=== PATIENT | male | born 1980 | race Caucasian/White ===

== ENCOUNTER 2018-10-26 18:23 | Emergency (ER) | payer OTHER ==
[2018-10-26 18:28] VITALS: PULSE 72; RESP 18
[2018-10-26] MEDS ORDERED: Sodium Chloride 0.9% 1,000 ML IV STA (18:52)
[2018-10-26 19:24] LABS: BASO # 0.1 K/uL (0.0-0.2); BASO % 0.4 % (0.0-2.0); EOS % 0.1 % (0.0-4.0); HEMOGLOBIN 13.9 g/dL (12.0-18.0); LYMPH # 1.4 K/uL (1.0-4.3); LYMPH % 8.5 % (20.0-40.0); MEAN CELL VOLUME 86.7 fl (80.0-94.0); MEAN CORPUSCULAR HEMOGLOBIN 29.6 pg (27.0-31.0); MEAN CORPUSCULAR HGB CONC 34.1 g/dL (33.0-37.0); MEAN PLATELET VOLUME 9.1 fl (7.2-11.7); MONO # 0.9 K/uL (0.0-0.8); MONO % 5.3 % (0.0-10.0); NEUT # 13.7 K/uL (1.8-7.0); NEUT % 85.7 % (50.0-75.0); PLATELET COUNT 219 K/uL (130-400); RBC 4.71 Mil/uL (4.40-5.90); RED CELL DISTRIBUTION WIDTH 13.7 % (11.5-14.5)
[2018-10-26 19:36] LABS: SQUAMOUS EPITHIAL < 1 /hpf (0-5); URINE BACTERIA RARE (<OCC); URINE BILIRUBIN NEGATIVE (NEGATIVE); URINE BLOOD MODERATE (NEGATIVE); URINE CALCIUM OXALATE CRYSTALS FEW /hpf (<OCC); URINE CLARITY CLOUDY (Clear); URINE COLOR YELLOW (YELLOW); URINE GLUCOSE (UA) NEG (NEGATIVE); URINE HYALINE CAST 0-2 /hpf (0-2); URINE LEUKOCYTE ESTERASE NEG Leu/uL (Negative); URINE PROTEIN 100 mg/dL (NEGATIVE)
--- NOTE | 2018-10-26 19:46 | ED PDOC ---
HPI: Abdomen Time Seen by Provider: 10/26/18 18:33 Chief Complaint (Nursing): Male Genitourinary Chief Complaint (Provider): Left flank pain History Per: Patient History/Exam Limitations: no limitations Onset/Duration Of Symptoms: Days (x2) Current Symptoms Are (Timing): Still Present Additional Complaint(s): 38 year old male presents to the ED with sudden onset of sharp nonradiating left flank pain 2 hours [employer]. Denies nausea or vomiting. Patient hasn't taken anyt hank for pain. Patient had gone to the [facility] where they told him there was blood in the urine. Patient also denies testicular pain. PMD: none provided Past Medical History Reviewed: Historical Data, Nursing Documentation, Vital Signs Vital Signs: Last Vital Signs Temp 97.1 F L 10/26/18 18:26 Pulse 72 10/26/18 18:26 Resp 18 10/26/18 18:26 BP 162/90 H 10/26/18 18:26 Pulse Ox 99 10/26/18 18:26 - Medical History PMH: Asthma Other PMH: ADHD - Surgical History Surgical History: No Surg Hx - Family History Family History: States: Other Other Family History: Kideny stones - Social History Current smoker - smoking cessation education provided: No - Home Medications Home Medications: Ambulatory Orders Medication Instructions Recorded Ciprofloxacin [Cipro] 1 tab PO BID #14 tab 10/26/18 RX: Ibuprofen [Motrin Tab] 600 mg PO Q8 PRN #30 tab 10/26/18 RX: traMADol [Ultram] 50 mg PO TID PRN #15 tab 10/26/18 Tamsulosin [Flomax] 0.4 mg PO DAILY #14 cap 10/26/18 - Allergies Allergies/Adverse Reactions: Allergies Allergy/AdvReac Type Severity Reaction Status Date / Time No Known Allergies Allergy Verified 10/26/18 18:26 Review of Systems ROS Statement: Except As Marked, All Systems Reviewed And Found Negative Gastrointestinal: Positive for: Abdominal Pain (Left flank pain). Negative for: Nausea, Vomiting Genitourinary Male: Negative for: Hematuria, Other (testicular pain) Physical Exam - Reviewed Nursing Documentation Reviewed: Yes Vital Signs Reviewed: Yes - Physical Exam Appears: Positive for: Non-toxic, In Acute Distress (painful distress) Head Exam: Positive for: ATRAUMATIC, NORMOCEPHALIC Skin: Positive for: Warm, Dry Eye Exam: Positive for: EOMI, PERRL Neck: Positive for: Painless ROM, Supple Cardiovascular/Chest: Positive for: Regular Rate, Rhythm. Negative for: Murmur Respiratory: Positive for: Normal Breath Sounds. Negative for: Respiratory Distress Gastrointestinal/Abdominal: Positive for: Soft. Negative for: Tenderness, Mass, Guarding, Rebound Back: Positive for: L CVA Tenderness (mild) Extremity: Positive for: Normal ROM. Negative for: Deformity Lymphatic: Negative for: Adenopathy Neurologic/Psych: Positive for: Alert. Negative for: Motor/Sensory Deficits - Laboratory Results Result Diagrams: 10/26/18 19:16 10/26/18 21:30 Lab Results: Urine Color Yellow (YELLOW) 10/26/18 19:16 Urine Clarity Cloudy (Clear) 10/26/18 19:16 Urine pH 5.0 (5.0-8.0) 10/26/18 19:16 Ur Specific Norden 1.033 (1.003-1.030) H 10/26/18 19:16 Urine Protein 100 mg/dL (NEGATIVE) 10/26/18 19:16 Urine Glucose (UA) Neg mg/dL (NEGATIVE) 10/26/18 19:16 Urine Ketones 80 mg/dL (NEGATIVE) 10/26/18 19:16 Urine Blood Moderate (NEGATIVE) 10/26/18 19:16 Urine Nitrate Negative (NEGATIVE) 10/26/18 19:16 Urine Bilirubin Negative (NEGATIVE) 10/26/18 19:16 Urine Urobilinogen 1.0 mg/dL (0.2-1.0) 10/26/18 19:16 Ur Leukocyte Esterase Neg Arianne/uL (Negative) 10/26/18 19:16 Urine RBC (Auto) 12 /hpf (0-3) H 10/26/18 19:16 Urine Microscopic WBC 2 /hpf (0-5) 10/26/18 19:16 Ur Squamous Epith Cells < 1 /hpf (0-5) 10/26/18 19:16 Calcium Oxalate Crystal Few /hpf (<OCC) H 10/26/18 19:16 Urine Bacteria Rare (<OCC) 10/26/18 19:16 Hyaline Casts 0-2 /hpf (0-2) 10/26/18 19:16 - ECG O2 Sat by Pulse Oximetry: 99 (RA) Pulse Ox Interpretation: Normal Medical Decision Making Medical Decision Making: Initial Impression: Left flank pain Differential includes but not limited to pyelonephritis, renal colic, and muscle strain Initial Plan: --CT abd/pelvis --CMP --Urine drug screen --CBC --Fomax 0.4mg PO --Sodium chloride 1000mL IV --Toradol 30mg IV --Tylenol 975mg PO --Urine culture --Urinalysis UA demonstrates blood Bloodwork demonstrates leukocytosis Name: ALEJANDRO LIPSCOMB Exam Date: Oct 26, 2018 7:43:21 PM EST Modality Type: CT Description: CT - ABDOMEN AND PELVIS STONE PROTOCOL Gender: M Laterality: Not applicable : 84 Referring Physician: Agnieszka Coronado EXAM: CT Abdomen and Pelvis without IV contrast CLINICAL HISTORY: Left flank pain TECHNIQUE: Axial computed tomography images of the abdomen and pelvis without intravenous contrast. 618.26 mGy-cm CONTRAST: Without COMPARISON: None provided. FINDINGS: LUNG BASES: The lung bases appear clear. No pleural effusions are seen. LIVER: There is mild hepatomegaly. The liver measured approximately 16.7 cm in the midclavicular line. GALLBLADDER AND BILE DUCTS: The gallbladder appears within normal limits. No radioopaque gallstones are seen. No biliary ductal dilatation is evident. PANCREAS: Unremarkable. SPLEEN: Unremarkable. ADRENAL GLANDS: Unremarkable. KIDNEYS, URETERS, AND BLADDER: Both kidneys are normal in size and position. An obstructing 3.0 mm calculus is noted in the distal left UVJ which causes associated continuous mild left hydroureter and mild left hydronephrosis. Left Perinephric Stranding Is Also Pr esent.The urinary bladder is normal in size and configuration. STOMACH AND BOWEL: A small hiatal hernia is identified. Unremarkable appearance of the stomach. No evidence of bowel obstruction. There is some fluid and gaseous distention of the left sided small intestine suggestive of mild nonspecific localized ileus. APPENDIX: No evidence of acute appendicitis on CT examination. PERITONEUM: No free fluid. No free air. LYMPH NODES: No lymphadenopathy is evident. REPRODUCTIVE: Unremarkable as visualized. VASCULATURE: No evidence of abdominal aortic aneurysm. BONES: No aggressive appearing osseous lesion. No acute osseous pathology evident. IMPRESSION: 1. A 3.0 mm calculus is identified in the distal left UVJ causing associated mild continuous left hydronephrosis/hydroureter. Some left perinephric stranding is also noted. 2. Findings thought compatible with nonspecific ileus in the left mid abdomen. 3. Mild hepatomegaly. Measurement is given above. Electronically signed on Oct 26, 2018 8:50:56 PM EST by: Warren Perea M.D., MBA Certified By [employer] Fellowship Trained MRI and CT Specialist 9p Pt feels better. DW pt findings and advised high likelihood of passage of stone without surgical intervention. DW pt plan of care. Scribe Attestation: Documented by Lc Robles acting as a scribe for Agnieszka Coronado MD. Provider Scribe Attestation: All medical record entries made by the Scribe were at my direction and p ersonally dictated by me. I have reviewed the chart and agree that the record accurately reflects my personal performance of the history, physical exam, medical decision making, and the department course for this patient. I have also personally directed, reviewed, and agree with the discharge instructions and disposition. Disposition - Clinical Impression Clinical Impression: Renal colic - Disposition Referrals: Jeremi Rico MD [Medical Doctor] - (CALL TOMORROW TO SETUP FOLLOWUP A PPOINTMENT IN A WEEK) Disposition: Routine/Home Disposition Time: 21:00 Condition: IMPROVED Additional Instructions: PLEASE STRAIN YOUR URINE FOLLOWUP WITH DR RICO NEXT WEEK FOR REEVALUATION Prescriptions: Ciprofloxacin [Cipro] 1 tab PO BID #14 tab RX: Ibuprofen [Motrin Tab] 600 mg PO Q8 PRN #30 tab PRN Reason: Pain, Moderate (4-7) Tamsulosin [Flomax] 0.4 mg PO DAILY #14 cap RX: traMADol [Ultram] 50 mg PO TID PRN #15 tab PRN Reason: SEVERE PAIN ONLY Instructions: Renal Colic (DC) Forms: [facility] ED School/Work Excuse
[2018-10-26 20:30] LABS: BANDS 2 % (0-2); LYMPHOCYTE 10 % (20-50); MONOCYTE 6 % (0-10); NEUTROPHIL 82 % (42-75); PLATELET ESTIMATE NORMAL (NORMAL); TOTAL CELLS COUNTED 100
[2018-10-26 20:31] LABS: HYPOCHROMIC SLIGHT
[2018-10-26 21:46] VITALS: BP 133/69; TEMP 98.8
[2018-10-26 22:10] LABS: ALB/GLOB RATIO 1.4 (1.0-2.1); ALBUMIN 4.2 g/dL (3.5-5.0); ALT/SGPT 33 U/L (21-72); AST/SGOT 21 U/L (17-59); BLOOD UREA NITROGEN 20 mg/dl (9-20); CALCIUM 9.1 mg/dL (8.4-10.2); GFR NON-AFRICAN AMERICAN > 60
[2018-10-26 22:14] LABS: BARBITURATES, UR NEGATIVE (NEGATIVE); BENZODIAZEPINES, UR NEGATIVE (NEGATIVE); OPIATES, UR NEGATIVE (NEGATIVE); PHENCYCLIDINE, UR NEGATIVE (NEGATIVE)
--- NOTE | 2018-10-27 08:58 | CT ---
Date of service: 10/26/2018 PROCEDURE: CT Abdomen and Pelvis without intravenous contrast HISTORY: LEFT flank pain COMPARISON: None. TECHNIQUE: Without contrast.. Contrast dose: 0 Radiation dose: Total exam DLP = 618.26 mGy-cm. This CT exam was performed using one or more of the following dose reduction techniques: Automated exposure control, adjustment of the mA and/or kV according to patient size, and/or use of iterative reconstruction technique. FINDINGS: LOWER THORAX: Unremarkable. LIVER: Unremarkable. No gross lesion or ductal dilatation. GALLBLADDER AND BILE DUCTS: Unremarkable. PANCREAS: Unremarkable. No gross lesion or ductal dilatation. SPLEEN: Unremarkable. ADRENALS: Unremarkable. No mass. KIDNEYS AND URETERS: Minimal left hydronephrosis. Left hydroureter. There is an obstructing 4 mm calculus at the left ureteral orifice protruding into the bladder lumen. There is left periureteric stranding along its course as well as about the left renal hilum. 2 mm nonobstructing mid right renal calculus. No right hydronephrosis. No renal mass. VASCULATURE: Unremarkable. No aortic aneurysm. No aortic atherosclerotic calcification or mural plaque present. BOWEL: No bowel obstruction. Very small hiatal hernia. No abnormal bowel loops otherwise appreciated. APPENDIX: Unremarkable. Normal appendix. PERITONEUM: Unremarkable. No free fluid. No free air. LYMPH NODES: Unremarkable. No enlarged lymph nodes. BLADDER: Nondistended REPRODUCTIVE: Normal prostate BONES: No acute fracture. OTHER FINDINGS: None. IMPRESSION: Obstructing 4 mm calculus at the left ureteral orifice. Mild left hydroureteronephrosis. 2 mm nonobstructing right renal calculus. No other significant abnormality. The preliminary findings for this examination were reported by [facility] at 8:50 p.m. on 10/26/2018. There is concurrence of this report with the preliminary findings.
[2018-10-29 09:57] VITALS: O2SAT 99
== END 2018-10-26 22:35 | disposition home or self-care (01) ==
LOC: H.ER 18:23
DX: N23 Unspecified renal colic (principal); D72.829 Elevated white blood cell count, unspecified; F90.9 Attention-deficit hyperactivity disorder, unspecified type
CPT/HCPCS: 74176; 80053; 80324; 80345; 80346; 80349; 80353; 80358; 80361; 81003; 83992; 85025; 87086; 96361; 96374; 99285; J1885; J7030